=== PATIENT | female | born 1990 | race Caucasian/White ===

== ENCOUNTER 2024-08-09 09:20 | Outpatient (CLI) | payer MEDICAID | END 2024-08-09 23:59 | disposition home or self-care (01) | LOC: MRI02 09:20 | PROVIDERS: ATTEND Nurse Practitioner | DX: M47.815 Spondylosis without myelopathy or radiculopathy, thoracolumbar region (principal); M51.360 Other intervertebral disc degeneration, lumbar region with discogenic back pain only; M41.9 Scoliosis, unspecified; M47.897 Other spondylosis, lumbosacral region; M51.379 Other intervertebral disc degeneration, lumbosacral region without mention of lumbar back pain or lower extremity pain | CPT/HCPCS: 72146; 72148 ==